=== PATIENT | female | born 1950 | race Caucasian/White ===

== ENCOUNTER 2021-10-14 15:26 | Emergency (ER) | payer MEDICARE, MEDICAID, SELFPAY ==
[2021-10-14 17:08] VITALS: BP 0/0; PULSE 0; RESP 0; TEMP -17.7; TEMP 0
== END 2021-10-14 17:09 | disposition left against medical advice (07) ==
LOC: UTC 15:39
PROVIDERS: Emergency Provider Nurse Practitioner
DX: Z53.21 Procedure and treatment not carried out due to patient leaving prior to being seen by health care provider (principal)